=== PATIENT | female | born 1990 | race African-American/Black ===

== ENCOUNTER 2021-07-31 11:49 | Emergency (ER) | payer MEDICAID, OTHER, SELFPAY ==
[2021-07-31 11:53] VITALS: BP 123/69; PULSE 89; RESP 16; TEMP 37; O2SAT 100
[2021-07-31 12:33] VITALS: BP 123/69; PULSE 89; RESP 19; TEMP 37; O2SAT 100; BMI 20.9
--- NOTE | 2021-07-31 13:07 | ED.GENADULT ---
HPI - General Adult General Chief complaint: General Medical Stated complaint: allergic reaction? Time Seen by Provider: 07/31/21 13:01 Source: patient Mode of arrival: ambulatory Limitations: language barrier [facility] Past Medical History Medical History (Updated 07/31/21 @ 12:36 by Ken Ferris) Psoriasis Social History Social History Patient : No Physical Exam Vital Signs: Vital Signs: Last Vital Signs Temp 98.6 F 07/31/21 12:33 Pulse 89 07/31/21 12:33 Resp 19 07/31/21 12:33 BP 123/69 07/31/21 12:33 Pulse Ox 100 07/31/21 12:33 BMI result Body Mass Index 20.9 Discharge Plan Discharge Patient Disposition: Home, Self-Care
--- NOTE | 2021-07-31 13:22 | ED_ITS ---
HPI - Allergic Reaction General Chief complaint: General Medical Stated complaint: allergic reaction? Time Seen by Provider: 07/31/21 13:01 Source: patient Mode of arrival: ambulatory Limitations: language barrier (north korean-speaking) History of Present Illness HPI narrative: Patient is a 30-year-old north korean speaking female with a history significant for psoriasis. She reports the presence of psoriasis-type rash di ffusely throughout her body. Two years ago, when she was in [facility], she was being treated with cortisone injections for this. Currently, she states that over the past week her rash has become increasingly more itchy. She has not been applying any topical creams. Denies potential environmental allergens or new medications. Denies shortness of breath, difficulty breathing, wheezing, chest pain. Onset (ago): year(s) Exposure: unknown Symptoms: rash and itching Severity: moderate Treatment prior to arrival: none Related Data Previous Rx's Medication Instructions Recorded hydrocortisone 2.5 % topical 1 appl TOPICAL BID #453.6 g 07/31/21 ointment hydroxyzine HCl 25 mg tablet 25 mg PO TID PRN #21 tab 07/31/21 prednisone 5 mg tablet See Rx Instructions .ROUTE 07/31/21 .COMPLEX #36 tab Allergies Allergy/AdvReac Type Severity Reaction Status Date / Time No Known Allergies Allergy Verified 07/31/21 13:28 Review of Systems Review of Systems: Constitutional : No Fever, No Chills ENT/Mouth : No oral swelling, No Hoarseness, No Swallowing Difficulty Eyes: No Eye Pain, No Swelling, No Redness Cardiovascular : No Chest Pain, No SOB Respiratory : No Cough, No Sputum, No Wheezing, No Smoke Exposure, No Dyspnea Gastrointestinal : No Nausea, No Vomiting, No Diarrhea, No abdominal Pain Genitourinary : No Dysuria, No Urinary Frequency, No Hematuria Musculoskeletal : No joint pain, No Myalgias, No Joint Swelling Skin : + pos rash as noted in HPI Neuro : No Weakness, No Numbness, No Headache Psych : No Anxiety/Panic, No Depression Heme/Lymph: No Bruising, No Lymphadenopathy Endocrine : No Polyuria, No Polydipsia All other systems reviewed and are negative Yes all other systems are reviewed and are negative PMFSH Past Medical History Attestation statement: The following information was validated with the patient. Source: old records reviewed Medical History (Updated 07/31/21 @ 13:43 by Henrietta Allan CNP) Psoriasis Social History Social History Advance Directives: No Advance Directives Information Provided: Yes Patient : No Physical Exam Vital Signs: Vital Signs: Last Vital Signs Temp 98.6 F 07/31/21 12:33 Pulse 89 07/31/21 12:33 Resp 19 07/31/21 12:33 BP 123/69 07/31/21 12:33 Pulse Ox 100 07/31/21 12:33 BMI result Body Mass Index 20.9 Appearance: Alert.? Oriented X3.? No acute distress.?? Eyes: Pupils equal, round and reactive to light.?? ENT: Pharynx normal.?? Neck: Normal inspection.? Neck supple.?? CVS: Normal heart rate and rhythm.? Pulses normal.?? Respiratory: No respiratory distress.? Breath sounds normal.?? Skin: + diffuse annular plaques to extremities, and trunk/ torso, sparing hands/feet. Skin warm and dry.? Normal skin color.? Normal skin turgor.?? Extremities: No lower extremity edema.? Neuro: Oriented X 3.? No motor deficit.? No sensory deficit. Course Course Course Narrative: Patient is a 30-year-old Fijian-speaking female with a history of psoriasis, currently untreated, presenting with pruritic plaques diffusely throughout her body. Plaques consistent with psoriasis and she will be discharged home with prescriptions for topical hydrocortisone, prednisone taper, and hydroxyzine. Side effects and questions answered. Ideally, she should follow-up with a primary care provider in 1 week, however, she does not have a primary care provider to follow up with. Provided with contact numbers for establishing care with a new primary care provider, in addition to dermatology. Patient to return to the emergency department for any worsening s ymptoms or concerns. MDM - Allergic Reaction Medical Records Attestation: I reviewed the patient's medical records. Discharge Plan Discharge Clinical Impression: Psoriasis Patient Disposition: Home, Self-Care Instructions: Psoriasis (ED) Additional Instructions: You have been given new prescriptions for hydrocortisone cream to apply twice daily in addition to hydroxyzine to use as needed for itching in a prednisone taper with instructions on appropriate usage. 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 Please return to ED for any worsening symptoms or concerns. Prescriptions: New hydrocortisone 2.5 % ointment 1 appl topical BID Qty: 453.6 RF: 0 hydroxyzine HCl 25 mg tablet 25 mg PO TID PRN (Reason: itching) Qty: 21 RF: 0 prednisone 5 mg tablet See Rx Instructions .ROUTE .COMPLEX Qty: 36 RF: 0 Referrals: [facility] [Provider Group] - 2 days [facility] [place] [facility] [Provider Group] - 2 days [facility] [place] [facility] [[facility]] - 2 days [facility] [place] [facility] [Provider Group] - 2 days [facility] [Provider Group] - 2 days Interventions: ED Discharge Assessment Last Done: 07/31/21 13:57 Discharge Date/Time: 07/31/21 13:57 Print Language: Fijian
== END 2021-07-31 13:57 | disposition home or self-care (01) ==
LOC: HO.ED 13:18
PROVIDERS: Emergency Provider Emergency Medicine
DX: L40.9 Psoriasis, unspecified (principal)
CPT/HCPCS: 99283; 99284